=== PATIENT | male | born 1940 | race Caucasian/White ===

== ENCOUNTER 2016-08-12 08:20 | Day surgery (SDC) | payer MEDICARE ==
[~2016-08-12] VITALS: Ht 171.4 cm; Wt 91.6 kg
[~2016-08-12 08:20] MED LIST: 0.9% Sodium Chloride 1,000 ML IV PRN; ASP81TEC PO; CARV12.5 PO; CINN500C14 PO; LIP40 PO; LISI10TA PO; PARO37.511 PO; Sodium Chloride LOK Flush 10 mL Syringe IV PRN; fentaNYL-PF 50 mCg/mL 2 mL Inj IVPUSH PRN
[2016-08-12 09:02] VITALS: BP 130/78; PULSE 57; RESP 17; O2SAT 95
--- NOTE | 2016-08-12 10:38 | PCM.ENDCOL ---
Colonoscopy Date of Service: Aug 12, 2016 Physician Reginaldo Cano MD Pre Procedure Diagnosis: Family history of colon cancer Post Procedure Dx & Findings: Polyps hemorrhoids diverticuli Procedure Colonoscopy Prep adequate Withdrawal 13 minutes PROCEDURE IN DETAIL: After unremarkable rectal examination Olympus video colonoscope was inserted into patient's anal canal and advanced the cecum. Landmarks were identified including the ileocecal valve and appendiceal orifice. Scope was withdrawn systematically. The mucosa of the cecum, ascending, transverse, descending, sigmoid, rectal mucosa lined with whitish, pink, smooth, glistening, normal-appearing mucosa, normal fine branching, underlying vascularity, normal haustra. The patient tolerated procedure and was transported to observation area. In the ascending colon, there was a 3 mm polyp which was removed completely using cold snare. In the sigmoid colon there were two1 mm polyps which were removed completely using cold forcep. In the sigmoid colon there a few small diverticuli. In the rectum retroflexion was done which showed hemorrhoids anal canal was inspected carefully on the way out and hemorrhoids noted. Impression Polyps 3 status post complete removal Hemorrhoids Diverticuli Family history of colon cancer Recommendation Colonoscopy 3 years Diverticula diet Presedation Assessment Risks and Benefits Informed consent was obtained from the patient after all risks and benefits including but not limited to drug reaction, infection, pain, bleeding, perforation, as well as alternatives were discussed. Patient monitoring Continuous pulse oximetry, cardiac monitoring, blood pressure monitoring, IV access, and oxygen at 2L per nasal cannula. Periprocedural Fentanyl: Fentanyl 100mcg Incrementally Midazolam: Midazolam 5mg Incrementally Complications There were no periprocedural complications identified. Post Procedure Plan Post Procedure Recommendations 1. Restrict activities today. 2. Resume normal activities in the morning. 3. Resume medications. 4. Patient informed of normal post procedure side effects as bloating, drowsiness, blood streaking in the stool. 5. average risk CRCS. If colon polyps come back as: -Hyperplastic- can repeat colonoscopy in 10 years -Tubular adenoma- repeat colonoscopy in 5 years -Tubulovillous/villous adenoma- repeat colonoscopy in 3 years -If any dysplasia- return to clinic as soon as possible 6. Please don't hesitate to call me with any questions. Reginaldo Cano MD Aug 12, 2016 10:38
[2016-08-12 10:40] VITALS: BP 104/54; PULSE 63; RESP 16; O2SAT 93
[2016-08-12 10:49] VITALS: BP 82/54; PULSE 64; RESP 16; O2SAT 91
[2016-08-12 10:50] VITALS: BP 80/64; PULSE 82; RESP 16; O2SAT 95
[2016-08-12 10:54] VITALS: BP 107/68; PULSE 64; RESP 16; O2SAT 94
--- NOTE | 2016-08-13 10:56 | PATH ---
SURGICAL PATHOLOGY Attending Physician:Reginaldo Cano M.D. CASE STATUS: Signed Out PATIENT NAME: JOEY LAMAR PID: [id number] : 1940 DATE COLLECTED:08/12/2016 15:55 SPECIMEN: 1: Colon, Biopsy 2: Colon, Biopsy CLINICAL HISTORY: 1.ASCENDING COLON POLYP X1 2.SIGMOID COLON POLYPS X2 FINAL DIAGNOSIS: 1.ASCENDING COLON POLYP: TUBULAR ADENOMA. 2.SIGMOID COLON POLYPS: TUBULAR ADENOMA INVOLVING SINGLE BIOPSY FRAGMENT. HYPERPLASTIC POLYP INVOLVING SINGLE BIOPSY FRAGMENT. ICD10 CODE D12.2 GROSS DESCRIPTION: The specimen is received in two formalin filled containers labeled with the patient's name. 1). The specimen is sublabeled "ascending colon polyp" and consists of a 0.4 x 0.3 x 0.2 CM portion of tissue which is entirely submitted in cassettes 1A. 2). The specimen is sublabeled "sigmoid colon polyps" and consists of 2 portions of tissue which aggregate to 0.3 x 0.3 x 0.2 CM. The specimen is entirely submitted in cassette 2A. 08/12/2016 [facility] MICRO DESCRIPTION: See diagnosis. ICD-9 CODES: CPT CODES: 1: 68455 2: 77314 Electronically Signed Out Angelo Elias MD [facility] Pathology [facility] [address], [place] [address] Technical component performed at [facility], [facility] [address], [place], [address]
== END 2016-08-12 23:59 | disposition home or self-care (01) ==
LOC: END 08:20
PROVIDERS: ATTEND Internal Medicine
DX: Z12.11 Encounter for screening for malignant neoplasm of colon (principal); D12.2 Benign neoplasm of ascending colon; D12.5 Benign neoplasm of sigmoid colon; K64.8 Other hemorrhoids; K57.30 Diverticulosis of large intestine without perforation or abscess without bleeding; Z80.0 Family history of malignant neoplasm of digestive organs; I25.10 Atherosclerotic heart disease of native coronary artery without angina pectoris; I25.2 Old myocardial infarction; I42.9 Cardiomyopathy, unspecified; I10 Essential (primary) hypertension; F32.9 Major depressive disorder, single episode, unspecified; K21.9 Gastro-esophageal reflux disease without esophagitis; E78.5 Hyperlipidemia, unspecified; Z86.718 Personal history of other venous thrombosis and embolism; Z79.82 Long term (current) use of aspirin; Z87.891 Personal history of nicotine dependence
CPT/HCPCS: 45380; 45385; G0500; J2250; J3010; J7030